=== PATIENT | female | born 1965 | race African-American/Black ===

== ENCOUNTER 2017-09-01 21:32 | Emergency (ER) | payer OTHER ==
--- NOTE | 2017-09-01 21:41 | PDOC ---
Rapid Medical Evaluation Time Seen by Provider: 09/01/17 21:38 Medical Evaluation: Allergies Allergy/AdvReac Type Severity Reaction Status Date / Time No Known Allergies Allergy Verified 09/06/15 03:12 I have performed a brief in-person evaluation of this patient. The patient presents with a chief complaint of: sore throat x 1 week. was swabbed for strep throat 4 days ago and was negative. still having pain Pertinent physical exam findings: minimal posterior pharyngeal erythema. I have ordered the following: rapid strep The patient will proceed to the ED for further evaluation
[2017-09-01 21:43] VITALS: BP 131/76; PULSE 97; TEMP 98.6; BMI 29.0
--- NOTE | 2017-09-01 23:05 | PDOC ---
History of Present Illness - General Chief Complaint: Sore Throat Stated Complaint: PAIN Time Seen by Provider: 09/01/17 21:38 - History of Present Illness Initial Comments: 52-year-old female with sore throat 1 week. She denies any other associated symptoms. 09/01/17 23:01 Past History - Past Medical History Allergies/Adverse Reactions: Allergies Allergy/AdvReac Type Severity Reaction Status Date / Time No Known Allergies Allergy Verified 09/01/17 21:41 Home Medications: Ambulatory Orders NK [No Known Home Medication] 09/01/17 COPD: No - Suicide/Smoking/Psychosocial Hx Smoking History: Never smoked Have you smoked in the past 12 months: No Hx Alcohol Use: No Drug/Substance Use Hx: No Review of Systems - Review of Systems Constitutional: No: Chills, Diaphoresis, Fever, Malaise, Night Sweats Respiratory: No: Cough, Shortness of Breath, SOB with Exertion, SOB at Rest, Stridor, Wheezing, Hemoptysis Cardiac (ROS): No: Chest Pain All Other Systems: Reviewed and Negative *Physical Exam - Vital Signs Last Vital Signs Temp Pulse Resp BP Pulse Ox 98.6 F 97 H 18 131/76 99 09/01/17 21:41 09/01/17 21:41 09/01/17 21:41 09/01/17 21:41 09/01/17 21:41 - Physical Exam Comments: 09/01/17 23:02 General Appearance: Well-developed, well-nourished A&O 3 NAD Head: NC/AT Ears: External auditory canals are normal and clear; tympanic membranes are normal; hearing is grossly intact Nose: Normal no discharge Throat and Oral cavity: Pharynx is clear with mild injection no swelling exudate no lesions teeth and gingiva are normal Neck: Supple nontender without lymphadenopathy masses or thyromegaly Cardiac: S1 and S2 without murmurs no peripheral edema cyanosis or pallor; extremities are warm and well-perfused; capillary refill is less than 2 seconds without carotid bruits Lungs: CTA and Percussion no rales or rhonchi or wheezing breath sounds are full bilaterally Abdomen: Positive bowel sounds; soft nondistended, nontender, no guarding or rebound tenderness; no masses Musculoskeletal; Adequately aligned spine range of motion intact to spine and extremities Neurologic: Cranial nerves II-XII are grossly intact strength and sensation are symmetric and intact Skin: Normal color and temperature normal texture turgor no lesions or eruptions 09/01/17 23:02 ED Treatment Course - ADDITIONAL ORDERS Additional order review: 09/01/17 21:40 Group A Strep Rapid Antigen - Final Throat *DC/Admit/Observation/Transfer Diagnosis at time of Disposition: Viral pharyngitis - Discharge Dispostion Disposition: HOME Condition at time of disposition: Stable Admit: No - Referrals Referrals: Rio Mandel MD [Staff Physician] - - Patient Instructions Printed Discharge Instructions: Viral Pharyngitis, DI for Viral Pharyngitis Additional Instructions: Warm salt water gargles 5-6 times daily. Motrin as directed for pain. Return to the emergency room if symptoms worsen or go on resolved prior to follow-up with ENT in 2-3 days - Post Discharge Activity
== END 2017-09-01 23:05 | disposition home or self-care (01) ==
LOC: JERFT 21:32
DX: J02.9 Acute pharyngitis, unspecified (principal); B97.89 Other viral agents as the cause of diseases classified elsewhere
CPT/HCPCS: 87070; 87430; 99281-25

== ENCOUNTER 2019-06-22 17:08 | Emergency (ER) | payer OTHER ==
[2019-06-22 17:20] VITALS: BP 124/90; PULSE 80; TEMP 98.2; BMI 29.9
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
[2019-06-22] MEDS ORDERED: KETOROLAC TROMETHAMINE 60 MG/2 ML VIAL IM ONE (18:19)
[2019-06-22] MEDS ORDERED: KETOROLAC TROMETHAMINE 60 MG/2 ML VIAL ONE (18:26)
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
[2019-06-22] MEDS ORDERED: IBUPROFEN 600 MG TABLET (FP) PO ONE ×2 (18:32→18:35)
== END 2019-06-22 18:40 | disposition home or self-care (01) ==
LOC: JERFT 17:08
PROC: 3E0233Z Introduction of Anti-inflammatory into Muscle, Percutaneous Approach (ICD-10-PCS; principal; 2019-06-22)
DX: S39.012A Strain of muscle, fascia and tendon of lower back, initial encounter (principal); S80.12XA Contusion of left lower leg, initial encounter; V49.49XA Driver injured in collision with other motor vehicles in traffic accident, initial encounter; Y92.414 Local residential or business street as the place of occurrence of the external cause; Y93.89 Activity, other specified; Y99.8 Other external cause status
CPT/HCPCS: 99284-25

== ENCOUNTER 2024-02-03 13:15 | Emergency (ER) | payer OTHER ==
[2024-02-03 13:22] VITALS: BP 198/89; PULSE 91; RESP 20; TEMP 98.4; BMI 30.4
[2024-02-03 14:55] LABS: BASO % 0.8 % (0-2.0); EOS % 0.5 % (0-4.5); HEMATOCRIT 37.8 % (32.4-45.2); HEMOGLOBIN 12.8 GM/dL (10.7-15.3); LYMPH % 26.9 % (8-40); MCH 28.6 pg (25.7-33.7); MCHC 33.7 g/dl (32.0-36.0); MEAN CELL VOLUME 84.9 fl (80-96); MEAN PLT VOLUME 8.6 fl (7.5-11.1); MONO % 5.8 % (3.8-10.2); PLATELET COUNT 337 10^3/uL (134-434); RBC 4.45 M/mm3 (3.60-5.2); WHITE BLOOD COUNT 9.7 K/mm3 (4.0-10.0)
[2024-02-03] MEDS ORDERED: CEPHALEXIN MONOHYDRATE 500 MG CAPSULE (UD) PO ONE (15:19)
[2024-02-03] MEDS ORDERED: CLINDAMYCIN 600MG PREMIX IVPB 600 MG/50 ML BAG IVPB ONE (15:19)
[2024-02-03 15:28] LABS: CALCIUM 9.3 mg/dL (8.5-10.1)
[2024-02-03 15:29] LABS: ALBUMIN 3.8 g/dl (3.4-5.0); BLOOD UREA NITROGEN 11.4 mg/dL (7-18)
[2024-02-03 15:32] LABS: CREATININE 0.8 mg/dL (0.55-1.3)
[2024-02-03] MEDS ORDERED: ACETAMINOPHEN INJECTION 100 ML ONE (15:32)
[2024-02-03 15:33] LABS: BILIRUBIN,TOTAL 0.4 mg/dL (0.2-1); TOT PROT 7.5 g/dl (6.4-8.2)
[2024-02-03] MEDS: ACETAMINOPHEN 1000 MG/100 ML BAG IVPB ONE (15:41)
[2024-02-03 15:42] LABS: ERYTHROCYTE SEDIMENTATION RATE 38 mm/hr (0-30)
[2024-02-03] MEDS ORDERED: SULFAMETHOXAZOLE/TRIMETHOPRIM 800MG/160MG D.S. TABLET ONE (16:30)
[2024-02-03] MEDS: SULFAMETHOXAZOLE/TRIMETHOPRIM 800MG/160MG D.S. TABLET PO ONE (16:36)
== END 2024-02-03 16:38 | disposition home or self-care (01) ==
LOC: JER 13:15
PROC: 0H96XZZ Drainage of Back Skin, External Approach (ICD-10-PCS; principal; 2024-02-03)
PROC: 3E033NZ Introduction of Analgesics, Hypnotics, Sedatives into Peripheral Vein, Percutaneous Approach (ICD-10-PCS; 2024-02-03)
DX: L03.012 Cellulitis of left finger (principal)
CPT/HCPCS: 10160; 36415; 73130-TC-RT-FY; 80053; 85025; 85651; 96374; 99284-25; J0131